=== PATIENT | male | born 1985 | race Caucasian/White ===

== ENCOUNTER 2017-11-04 20:37 | Emergency (ER) | payer SELFPAY ==
[~2017-11-04] VITALS: Ht 175.3 cm; Wt 79.4 kg
[2017-11-04 22:20] VITALS: BP 123/81
== END 2017-11-04 22:20 | disposition home or self-care (01) ==
LOC: ED 20:37
DX: H72.91 Unspecified perforation of tympanic membrane, right ear (principal); H60.92 Unspecified otitis externa, left ear
CPT/HCPCS: J1885